=== PATIENT | male | born 2005 | race Caucasian/White ===

== ENCOUNTER 2025-02-18 12:40 | Emergency (ER) | payer OTHER, SELFPAY ==
--- NOTE | ~2025-02-18 | XR_ITS ---
HISTORY: Palm FB eval COMPARISON: None TECHNIQUE: 3 views of the left hand were performed. FINDINGS: No acute fracture is identified. The joint spaces are preserved. The carpal arcs are intact. Trace radiocarpal joint space narrowing with sclerosis of the distal radius is present. Bone mineralization is age-appropriate. No significant soft tissue swelling. No radiopaque foreign body is identified. IMPRESSION: No acute fracture or dislocation within the left hand, as detailed above. Reviewed, dictated and finalized at location A.
[2025-02-18 12:50] VITALS: BP 171/92; PULSE 84; RESP 20; TEMP 36.6; O2SAT 100
--- OUTSIDE RECORDS SUMMARY | 2025-02-18 14:35 | XMS_ITS | Continuity of Care Document ---
Author Name [facility] Organization [facility] Care Team Providers Care Territory Supervisor Name Role Phone [facility] Unavailable Unavailable Problems Combined list of problems from [facility] and [facility] facilities. It does not include entries that were removed or entered in error. Problem Status Onset Date Problem Type Date of Resolution Comments Source Acculturation difficulty Active Condition [address] [place] [address] [place] Adjustment disorder with mixed anxiety and depressed mood Active Condition Unknown Organization Other problems related to employment Active Condition [address] [place] [address] Suicidal ideations Active Condition Unknown Organization Medications Combined list of outpatient medications from [facility] and [facility] facilities.Medications provided include 1) outpatient medications from the last 15 months, and 2) patient-reported medications. 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 Not to exceed 4000 mg/day., # 24 tab(s), 0 total refill(s ), Acute, 09/02/22 11:00:00 PM WATER RESOURCE ENGINEER, Pharmacy : [facility] Complet ed 09/03/2022 3 2022 24.0 [facility] Immunizations Combined list of available immunizations from the Department of Defense and Veterans Affairs facilities. Immunization Series Date Given Administered By Site Reaction Lot Number CVX Code Drug Labeling Associate Status Comments Source influenza virus vaccine, inactivated 2021 KARI ESPOSITO Brandyn vy, left (delt oid) [id number] 158 [employer] complet ed influenza virus vaccine, inactivat ed 07/07/22 Given [facility] measles, mumps and rubella virus vaccine 2 2021 DEVANTE PUENTES [id number] Merck (MSD) complet ed measles, mumps and rubella virus vaccine DoD Hepatitis B vaccine (recombinant) , CpG adjuvanted 2 2021 DEVANTE PUENTES [id number] [employer]. (DVX) complet ed Hepatitis B vaccine (recombin ant), CpG adjuvante d DoD SARS-COV-2 (COVID-19) vaccine, mRNA, spike protein, LNP, preservative free, 100 mcg or 50 mcg dose 2 2021 DEVANTE PUENTES [id number] [employer]. (MOD) complet ed SARS-COV- 2 (COVID-19 ) vaccine, mRNA, spike protein, LNP, preservat nuria free, 100 mcg or 50 mcg dose DoD measles, mumps and rubella virus vaccine 1 2021 LEIDY HALE [id number] Merck (MSD) complet ed measles, mumps and rubella virus vaccine DoD poliovirus vaccine, inactivated 1 2021 LEIDY HALE [id number] [employer] (MOD) complet ed polioviru s vaccine, inactivat ed DoD tuberculin skin test; purified protein derivative solution, intradermal 1 2021 LEIDY HALE [id number] Sanofi Pasteur (PMC) complet ed tuberculi n skin test; purified protein derivativ e solution, intraderm al DoD meningococcal polysaccharid e (groups A, C, Y and W-135) diphtheria toxoid conjugate vaccine (MCV4P) 1 2021 LEIDY HALE [id number] Sanofi Pasteur (PMC) complet ed meningoco ccal polysacch aride (groups A, C, Y and W-135) diphtheri a toxoid conjugate vaccine (MCV4P) DoD tetanus toxoid, reduced diphtheria toxoid, and acellular pertu is vaccine, adsorbed 1 2021 LEIDY HALE [id number] [facility] (SKB) complet ed tetanus toxoid, reduced diphtheri a toxoid, and acellular pertussis vaccine, adsorbed DoD Adenovirus, type 4 and type 7, live, oral 1 2021 LEIDY HALE [id number] 143 Unknown (UNK) complet ed Adenoviru s, type 4 and type 7, live, oral DoD Influenza, injectable, quadrivalent, preservative free 1 2021 LEIDY HALE [id number] 150 Other (OTH) complet ed Influenza , injectabl e, quadrival ent, preservat nuria free DoD Hepatitis B vaccine (recombinant) , CpG adjuvanted 1 2021 LEIDY HALE [id number] 189 [facility] (SKB) complet ed Hepatitis B vaccine (recombin ant), CpG adjuvante d DoD SARS-COV-2 (COVID-19) vaccine, mRNA, spike protein, LNP, preservative free, 100 mcg or 50 mcg dose 1 2021 LEIDY HALE [id number] [employer] (MOD) complet ed SARS-COV- 2 (COVID-19 ) vaccine, mRNA, spike protein, LNP, preservat nuria free, 100 mcg or 50 mcg dose DoD Results Combined list of recent chemistry, hematology and other laboratory results from Department of Defense and Veterans Affairs, ranging from 15 months to all on record, depending upon the facility. Order Name Results Value Reference Range Date Interpretation Specimen Comments Source Infectio us Disease Strep A, Rapid Positive *ABN* (08/03/22 12:23 PM) 08/03 A Unknown Organizat ion Toxicolo gy U Cocaine Scrn NEG 04/25 Interpretiv e Data: Screen cutoff: 300 ng/mL Results are to be used only for medical (ie, treatment) purposes. Unconfirmed screening results must not be used for non-medical purposes (eg, employment testing). Unknown Organizat ion Toxicolo gy U Amph Scrn NEG 04/25 Interpretiv e Data: Screen cutoff: 1000 ng/mL Results are to be used only for medical (ie, treatment) purposes. Unconfirmed screening results must not be used for non-medical purposes (eg, employment testing). Unknown Organizat ion Toxicolo gy U PCP Scrn NEG 04/25 Interpretiv e Data: Screen cutoff: 25ng/mL Results are to be used only for medical (ie, treatment) purposes. Unconfirmed screening results must not be used for non-medical purposes (eg, employment testing). Unknown Organizat ion Toxicolo gy U Yulisa Scrn NEG 04/25 Interpretiv e Data: Screen cutoff: 50 ng/mL Results are to be used only for medical (ie, treatment) purposes. Unconfirmed screening results must not be used for non-medical purposes (eg, employment testing). Unknown Organizat ion Toxicolo gy U Opiate Scrn NEG 04/25 Interpretiv e Data: Screen Cutoff: 300 ng/mL Results are to be used only for medical (ie, treatment) purposes. Unconfirmed screening results must not be used for non-medical purposes (eg, employment testing). Unknown Organizat ion Toxicolo gy U Benzodia Scrn NEG 04/25 Interpretiv e Data: Screen Cutoff: 200 ng/mL Results are to be used only for medical (ie, treatment) purposes. Unconfirmed screening results must not be used for non-medical purposes (eg, employment testing). Unknown Organizat ion Toxicolo gy U Cannab Scrn NEG 04/25 Interpretiv e Data: Screen cutoff: 50 ng/mL Results are to be used only for medical (ie, treatment) purposes. Unconfirmed screening results must not be used for non-medical purposes (eg, employment testing). Unknown Organizat ion Molecula r Infectio us Disease SARS-CoV-2 PCR Negative 12 (04/25/22 2:10 PM) 04/25 N Interpretiv e Data: Positive results are indicative of the presence of the identified virus, but do not rule out bacterial infection or co-infectio n with other pathogens not detected by the test. Negative results do not preclude SARS-CoV-2, influenza A, influenza B,and/or RSV infection and should not be used as the sole basis for treatment or other patient management decisions. Negative results must be combined with clinical observation s, patient history, and/or epidemiolog ical information . Clinical correlation with patient history and other diagnostic information is necessary to determine patient infection status. This multi-plex test has not been FDA cleared or approved. It has been authorized by the FDA under an EUA for use by authorized laboratorie s. This test has been authorized only for the simultaneou s qualitative detection and differentia tion of nucleic acids from SARS-CoV-2, influenza A, influenza B, and respiratory syncytial virus(RSV), and not for any other viruses or pathogens. Unknown Organizat ion Molecula r Infectio us Disease Influenza B PCR Negative 8 (04/25/22 2:10 PM) 04/25 N Interpretiv e Data: Positive results are indicative of the presence of the identified virus, but do not rule out bacterial infection or co-infectio n with other pathogens not detected by the test. Negative results do not preclude SARS-CoV-2, influenza A, influenza B,and/or RSV infection and should not be used as the sole basis for treatment or other patient management decisions. Negative results must be combined with clinical observation s, patient history, and/or epidemiolog ical information . Clinical correlation with patient history and other diagnostic information is necessary to determine patient infection status. This multi-plex test has not been FDA cleared or approved. It has been authorized by the FDA under an EUA for use by authorized laboratorie s. This test has been authorized only for the [employer] qualitative detection and differentia tion of nucleic acids from SARS-CoV-2, influenza A, influenza B, and respiratory syncytial virus(RSV), and not for any other viruses or pathogens. Unknown Organizat ion Molecula r Infectio us Disease RESP SYNCYTIAL VIRUS PCR Negative 14 (04/25/22 2:10 PM) 04/25 N Interpretiv e Data: Respiratory Syncytial Virus (RSV) is the cause of a contagious disease that affects primarily infants, and the elderly who are immunocompr omised. Positive results are indicative of the presence of the identified virus, but do not rule out bacterial infection or co-infectio n with other pathogens not detected by the test. Negative results do not preclude SARS-CoV-2, influenza A, influenza B,and/or RSV infection and should not be used as the sole basis for treatment or other patient management decisions. Negative results must be combined with clinical observation s, patient history, and/or epidemiolog ical information . Clinical correlation with patient history and other diagnostic information is necessary to determine patient infection status. This multi-plex test has not been FDA cleared or approved. It has been authorized by the FDA under an EUA for use by authorized laboratorie s. This test has been authorized only for the [employer] qualitative detection and differentia tion of nucleic acids from SARS-CoV-2, influenza A, influenza B, and respiratory syncytial virus(RSV), and not for any other viruses or pathogens. Unknown Organizat ion Molecula r Infectio us Disease Influenza A PCR Negative 10 (04/25/22 2:10 PM) 04/25 N Interpretiv e Data: Influenza A (Flu A) is the most common type of influenza virus in humans and is generally responsible for seasonal flu epidemics and potentially pandemics. Positive results are indicative of the presence of the identified virus, but do not rule out bacterial infection or co-infectio n with other pathogens not detected by the test. Negative results do not preclude SARS-CoV-2, influenza A, influenza B,and/or RSV infection and should not be used as the sole basis for treatment or other patient management decisions. Negative results must be combined with clinical observation s, patient history, and/or epidemiolog ical information . Clinical correlation with patient history and other diagnostic information is necessary to determine patient infection status. This multi-plex test has not been FDA cleared or approved. It has been authorized by the FDA under an EUA for use by authorized laboratorie s. This test has been authorized only for the [employer] qualitative detection and differentia tion of nucleic acids from SARS-CoV-2, influenza A, influenza B, and respiratory syncytial virus(RSV), and not for any other viruses or pathogens. Unknown Organizat ion Molecula r Infectio us Disease Reason for Test? Screenin g (04/25/22 2:10 PM) 04/25 N Unknown Organizat ion Molecula r Infectio us Disease Reason for Test? Screenin g (04/24/22 1:36 PM) 04/24 N Unknown Organizat ion Molecula r Infectio us Disease SARS-CoV-2 PCR Negative 13 (04/24/22 1:36 PM) 04/24 N Interpretiv e Data: Positive results are indicative of the presence of the identified virus, but do not rule out bacterial infection or co-infectio n with other pathogens not detected by the test. Negative results do not preclude SARS-CoV-2, influenza A, influenza B,and/or RSV infection and should not be used as the sole basis for treatment or other patient management decisions. Negative results must be combined with clinical observation s, patient history, and/or epidemiolog ical information . Clinical correlation with patient history and other diagnostic information is necessary to determine patient infection status. This multi-plex test has not been FDA cleared or approved. It has been authorized by the FDA under an EUA for use by authorized laboratorie s. This test has been authorized only for the [employer] qualitative detection and differentia tion of nucleic acids from SARS-CoV-2, influenza A, influenza B, and respiratory syncytial virus(RSV), and not for any other viruses or pathogens. Unknown Organizat ion Molecula r Infectio us Disease Influenza A PCR Negative 11 (04/24/22 1:36 PM) 04/24 N Interpretiv e Data: Influenza A (Flu A) is the most common type of influenza virus in humans and is generally responsible for seasonal flu epidemics and potentially pandemics. Positive results are indicative of the presence of the identified virus, but do not rule out bacterial infection or co-infectio n with other pathogens not detected by the test. Negative results do not preclude SARS-CoV-2, influenza A, influenza B,and/or RSV infection and should not be used as the sole basis for treatment or other patient management decisions. Negative results must be combined with clinical observation s, patient history, and/or epidemiolog ical information . Clinical correlation with patient history and other diagnostic information is necessary to determine patient infection status. This multi-plex test has not been FDA cleared or approved. It has been authorized by the FDA under an EUA for use by authorized laboratorie s. This test has been authorized only for the [employer] qualitative detection and differentia tion of nucleic acids from SARS-CoV-2, influenza A, influenza B, and respiratory syncytial virus(RSV), and not for any other viruses or pathogens. Unknown Organizat ion Molecula r Infectio us Disease Influenza B PCR Negative 9 (04/24/22 1:36 PM) 04/24 N Interpretiv e Data: Positive results are indicative of the presence of the identified virus, but do not rule out bacterial infection or co-infectio n with other pathogens not detected by the test. Negative results do not preclude SARS-CoV-2, influenza A, influenza B,and/or RSV infection and should not be used as the sole basis for treatment or other patient management decisions. Negative results must be combined with clinical observation s, patient history, and/or epidemiolog ical information . Clinical correlation with patient history and other diagnostic information is necessary to determine patient infection status. This multi-plex test has not been FDA cleared or approved. It has been authorized by the FDA under an EUA for use by authorized laboratorie s. This test has been authorized only for the [employer] qualitative detection and differentia tion of nucleic acids from SARS-CoV-2, influenza A, influenza B, and respiratory syncytial virus(RSV), and not for any other viruses or pathogens. Unknown Organizat ion Molecula r Infectio us Disease RESP SYNCYTIAL VIRUS PCR Negative 15 (04/24/22 1:36 PM) 04/24 N Interpretiv e Data: Respiratory Syncytial Virus (RSV) is the cause of a contagious disease that affects primarily infants, and the elderly who are immunocompr omised. Positive results are indicative of the presence of the identified virus, but do not rule out bacterial infection or co-infectio n with other pathogens not detected by the test. Negative results do not preclude SARS-CoV-2, influenza A, influenza B,and/or RSV infection and should not be used as the sole basis for treatment or other patient management decisions. Negative results must be combined with clinical observation s, patient history, and/or epidemiolog ical information . Clinical correlation with patient history and other diagnostic information is necessary to determine patient infection status. This multi-plex test has not been FDA cleared or approved. It has been authorized by the FDA under an EUA for use by authorized laboratorie s. This test has been authorized only for the [employer] qualitative detection and differentia tion of nucleic acids from SARS-CoV-2, influenza A, influenza B, and respiratory syncytial virus(RSV), and not for any other viruses or pathogens. Unknown Organizat ion Vital Signs Combined list of inpatient and outpatient Vital Signs from Department of Defense and Veterans Affairs, ranging from 12 months to all on record, depending upon the facility. Vital Sign Value Date Comments Source Mean Arterial Pressure, Calc 100 mm[Hg] 04/25/2022 21:14:00 Unknown Organization Temperature Oral 36.7 Nubia 04/25/2022 21:14:00 Unknown Organization Peripheral Pulse Rate 72 bpm 04/25/2022 21:14:00 Unknown Organization Respiratory Rate 16 br/min 04/25/2022 21:14:00 Unknown Organization Systolic Blood Pressure 143 mm[Hg] 04/25/20 21:14:00 Unknown Organization Diastolic Blood Pressure 79 mm[Hg] 21:14:00 Unknown Organization Respiratory Rate 16 br/min 06/20/2022 18:48:00 [facility] [place] Peripheral Pulse Rate 94 bpm 06/20/2022 18:48:00 [facility] [place] Mean Arterial Pressure, Calc 95 mm[Hg] 06/20/2022 18:48:00 [facility] Systolic Blood Pressure 138 mm[Hg] 06/20/20 18:48:00 [facility] [place] Diastolic Blood Pressure 74 mm[Hg] 18:48:00 [facility] BP Site Left arm 06/20/2022 18:48:00 [facility] Temperature Oral 37.1 Nubia 06/20/2022 18:48:00 [facility] [place] Blood Pressure Manual Manual 06/20/2022 18:48:00 [facility] [place] Systolic Blood Pressure 133 mm[Hg] 04/25/20 17:01:00 Unknown Organization Diastolic Blood Pressure 89 mm[Hg] 17:01:00 Unknown Organization Temperature Tympanic 36.8 Nubia 04/25/2022 17:01:00 Unknown Organization Peripheral Pulse Rate 69 bpm 04/25/2022 17:01:00 Unknown Organization Respiratory Rate 18 br/min 04/25/2022 17:01:00 Unknown Organization Systolic Blood Pressure 124 mm[Hg] 04/26/20 22 10:17:00 Unknown Organization Diastolic Blood Pressure 72 mm[Hg] 10:17:00 Unknown Organization Respiratory Rate 16 br/min 04/26/2022 10:17:00 Unknown Organization Peripheral Pulse Rate 81 bpm 04/26/2022 10:17:00 Unknown Organization Temperature Oral 36.9 Nubia 04/26/2022 10:17:00 Unknown Organization Temperature Oral 36.7 Nubia 04/28/2022 22:09:00 Unknown Organization Peripheral Pulse Rate 59 bpm 04/28/2022 22:09:00 Unknown Organization Respiratory Rate 16 br/min 04/28/2022 22:09:00 Unknown Organization Systolic Blood Pressure 143 mm[Hg] 04/28/20 22:09:00 Unknown Organization Diastolic Blood Pressure 85 mm[Hg] 22:09:00 Unknown Organization Mean Arterial Pressure, Calc 104 mm[Hg] 04/28/2022 22:09:00 Unknown Organization Mean Arterial Pressure, Calc 91 mm[Hg] 08/04/2022 12:55:00 [facility] Systolic Blood Pressure 124 mm[Hg] 08/04/19 23 12:55:00 [facility] Diastolic Blood Pressure 75 mm[Hg] 023 12:55:00 [facility] Temperature Oral 37.1 Nubia 08/04/2022 12:55:00 [facility] [place] Respiratory Rate 16 br/min 08/04/2022 12:55:00 [facility] Peripheral Pulse Rate 80 bpm 08/04/2022 12:55:00 [facility] Respiratory Rate 16 br/min 04/27/2022 10:24:00 Unknown Organization Systolic Blood Pressure 135 mm[Hg] 04/27/20 10:24:00 Unknown Organization Diastolic Blood Pressure 85 mm[Hg] 10:24:00 Unknown Organization Peripheral Pulse Rate 85 bpm 04/27/2022 10:24:00 Unknown Organization Temperature Oral 36.6 Nubia 04/27/2022 10:24:00 Unknown Organization Temperature Oral 36.7 Nubia 04/28/2022 10:15:00 Unknown Organization Peripheral Pulse Rate 59 bpm 04/28/2022 10:15:00 Unknown Organization Systolic Blood Pressure 143 mm[Hg] 04/28/20 22 10:15:00 Unknown Organization Diastolic Blood Pressure 85 mm[Hg] 022 10:15:00 Unknown Organization Respiratory Rate 16 br/min 04/28/2022 10:15:00 Unknown Organization Mean Arterial Pressure, Calc 104 mm[Hg] 04/28/2022 10:15:00 Unknown Organization Temperature Temporal Artery 36.8 [facility] 04/24/2022 17:03:00 Unknown Organization Temperature Temporal Artery 36.8 [facility] 04/24/2022 22:02:00 Unknown Organization Systolic Blood Pressure 127 mm[Hg] 04/24/20 22 22:02:00 Unknown Organization Diastolic Blood Pressure 55 mm[Hg] 022 22:02:00 Unknown Organization Peripheral Pulse Rate 72 bpm 04/24/2022 22:02:00 Unknown Organization Respiratory Rate 18 br/min 04/24/2022 22:02:00 Unknown Organization Temperature Oral 37.2 Nubia 08/03/2022 13:18:00 [facility] Respiratory Rate 16 br/min 08/03/2022 13:18:00 [facility] Systolic Blood Pressure 124 mm[Hg] 08/03/19 23 13:18:00 [facility] Diastolic Blood Pressure 81 mm[Hg] 023 13:18:00 [facility] Mean Arterial Pressure, Calc 95 mm[Hg] 08/03/2022 13:18:00 [facility] [place] Peripheral Pulse Rate 95 bpm 08/03/2022 13:18:00 [facility] Encounters Combined list of: 1) Encounters from Department of Veterans Affairs facilities going backup to the last 18 months, not all VA inpatient encounters are included; 2) Encounters from the Department of Defense facilities going backup to 280 months. Location Location Details Encounter Type Encounter Number Reason For Visit Attending Provider ADM Date DC Date Status Disposition Source [facility] [place] ho[place]([facility] Optometry Clinic) OUTPATIENT [id number] TITO HAYS 01/06 Released w/o Limitations [facility] Dennys valladares([facility]) [facility] Indai hoang([facility] Hearing Conservat ion) OUTPATIENT [id number] SOCORRO HEBERT Marisabel 01/06 Released w/o Limitations [facility] Dennys valladares([facility] Monse Hearing Conserv ation) [facility] [place]([facility] [employer]) OUTPATIENT [id number] FIRST VISIT FOR IMMUNIZ ATIONS YA YOVANY K 01/11 Released w/o Limitations [facility] Dennys valladares([facility] D [employer] ) [facility] [place] n([facility] Third BAS) OUTPATIENT [id number] Notes Entered by: LD SEVERINO 13 Jan 2022 0918 ------- ------- ------- ------- -- Myriam/OLMAN CELESTIN 01/13 Released w/o Limitations [facility] Dennys valladares([facility] D Third BN BAS) [facility] [place]([facility] [employer]) OUTPATIENT [id number] SECOND VISIT FOR IMMUNIZ YOVANY HENDRICKS 02/09 Released w/o Limitations [facility] Dennys valladares([facility] D [employer] ) Procedures Combined list of: 1) Procedures from Department of Veterans Affairs facilities going back up to thelast 18 months, not all VA non-surgical procedures are included; 2) All procedures from the Department of Defense facilities. Procedure Procedure Type Code Date Perfomer Comments Sourc e No data available for this section Ambulato ry Pharmacy IMMUNIZATION ADM,INTRAMUSCULAR INJECTION OF SEVERE AC RESPIRATORY SYNDROME CORONAVIR 2 (SARSCOV-2) (CORONAVIR DIS [COVID-19]) VACC,MRNALNP,SPIKE PROT,PRESERVATIVE FREE,100 MCG/0.5ML DOSAG;SECOND DOSE 2021 [facility] COLLECTION OF VENOUS BLOOD BY VENIPUNCTURE 2021 [facility] PURE TONE AUDIOMETRY (THRESHOLD), AUTOMATED; AIR ONLY 2021 [facility] OPHTHALMOLOGICAL SERVICES: MEDICAL EXAMINATION AND EVALUATION WITH INITIATION OF DIAGNOSTIC AND TREATMENT PROGRAM; INTERMEDIATE, NEW PATIENT 2021 [facility] Ophthalmological New Patient Start Intermediate Level Care Ophthalmological New Patient Start Intermediate Level Care [id number] CARMEN HAMMOND [facility] Patient education, not otherwise cla ified, non-physician provider, group, per se SOCORRO Romo [facility] Threshold Audiogram (Pure Tone) Automated Threshold Audiogram (Pure Tone) Automated 0208T SOCORRO HEBERT [facility] Vaccines Viral Measles, Mumps and Rubella, Live Vaccines Viral Measles, Mumps and Rubella, Live 06783 MANEJA, LEIDY A MMR; Series #: 1; 0.5 mL; SC; Left Arm; Mfg: Merck; Lot: [id number]; VIS given (Nathalie: 02/26/2021). [facility] Vaccines Viral Polio, Inactivated (Salk) Vaccines Viral Polio, Inactivated (Salk) 88358 LEIDY HALE IPV; Series #: 1; 0.5 mL; IM; Right Arm; Mfg: AFreeze.; Lot: [id number]; VIS given (Nathalie: 02/26/2021; 05/07/2021 - Multiple). [facility] Skin Test Anergy Tuberculin Intradermal Skin Test Anergy Tuberculin Intradermal 04938 LORELEIDY MCLAUGHLIN IPPD; Series #: 1; 0.1 mL; ID; Left Arm; Mfg: Sanofi Pasteur; Lot: [id number]; VIS given. [facility] Meningococcal Polysacch Diphtheria Toxoid Conjugate Vaccine Meningococcal Polysacch Diphtheria Toxoid Conjugate Vaccine 61122 LEIDY HALE Meningococcal MCV4P (Menactra); Series #: 1; 0.5 mL; IM; Right Arm; Mfg: Sanofi Pasteur; Lot: [id number]; VIS given (Nathalie: 02/26/2021). [facility] Tdap Vaccine Tdap Vaccine 41623 LEIDY HALE Tdap; Series #: 1; 0.5 mL; IM; Left Arm; Mfg: [employer]; Lot: [id number]; VIS given (Nathalie: 02/26/2021). [facility] Vaccines Vaccines 81641 LEIDY HALE Fran Adenovirus Type 4 and 7; Series #: 1; 2 tablets; PO; Oral; Mfg: Unknown; Lot: [id number]; VIS given (Nathalie: 07/31/2019). [facility] Immunization Administration One Vaccine Immunization Administration One Vaccine 84520 LEIDY HALE [facility] Immunization Administration Each Additional Vaccine Immunization Administration Each Additional Vaccine 80123 LEIDY HALE [facility] Immunization Admin By Intranasal / Oral Route One Vaccine Immunization Admin By Intranasal / Oral Route One Vaccine [address] Supervised Injection Intramuscular Supervised Injection Intramuscular 04292 LEIDY HALE [facility] Venipuncture Venipuncture 76600 LEIDY HALE [facility] Vaccines Viral Measles, Mumps and Rubella, Live Vaccines Viral Measles, Mumps and Rubella, Live 71018 DEVANTE PUENTES MMR; Series #: 2; 0.5 mL; SC; Left Arm; Mfg: Merck; Lot: [id number]. DoD Immunization Administration Age 18 Or Younger, One Vaccine Immunization Administration Age 18 Or Younger, One Vaccine 53004 DHAVAL DEVANTE Watson [facility] Immunization Administration Age 18 Or Younger, Each Additional Vaccine Immunization Administration Age 18 Or Younger, Each Additional Vaccine 15216 DAHVAL, DEVANTE Watson [facility] Social History Combined list of available smoking, tobacco, and other social history from Department of Defense and Veterans Affairs facilities. Social History Type Response Date Comment [facility] e Tobacco Never-cigarette user Cigarette use:. Never-other tobacco user (not cigarettes) Other Tobacco use:. [facility] Sexual Orientation Ambula tory Pharmacy Gender identity Ambulator y Pharmacy Sex Representation Male (finding) Un known Organization This section is an empty social history section. [facility] Assessment and Plan Combined list of future care activities from Department of Defense and Veterans Affairs facilities (e.g., assessment and plan notes, appointments, orders, and referrals). Additional future care activities may be listed in the Plan of Care section. Result Assessment and Plan Date Source Assessment and Plan Extracted from:Title : Office Clinic Note Author: BETTY NARVAEZ, IDC Date: 08/04/22 1. S trep throat -Continue taking medication as previously prescribed -Bicillin 1.2 millionunits IM x 1 now in clinic -Reemphasized the importance of strep protocol -Increase oral fluid intake -FFD -F/U PRN or if symptoms worsen or do not improve Ordered: penicillin G benzathine(Bicillin L-A), 1.2 millionunits, IntraMuscular, Syringe-Injection, Once, Prophylaxis, Other, First Dose: 08/04/2022 08:00:00 EST, Stop Date: 08/04/2022 08:00:00 EST, 08/04/2022 07:57:00 EST Orders: naproxen(naproxen 500 mg oral tablet), 1 tab(s), Oral, BID, # 20 tab(s), 0 total refill(s), Acute, 09/03/2022, 1 tab(s) Oral BID, Pharmacy: [facility] [Last filled 08/03/22] acetaminophen(Tylenol 325 mg oral tablet), See Instructions, PRN pain or fever, Take 1-2 tab(s) by mouth every 4-6 hours. Not to exceed 4000 mg/day., # 24 tab(s), 0 total refill(s), Acute, 09/03/2022, Take 1-2 tab(s) by mouth every 4-6 hours. Not to exceed 4000 mg/day.,PRN:as needed for pain... Rapid Strep A Screen Extracted from:Title: Office Clinic Note Author: BETTY NARVAEZ, SUMEET Date: 08/03/22 1. V iral syndrome -Exams rather unremarkable, positive erythema to bilateral tonsils without edema or exudate, will obtain Rapid Strep test and treat symptomatically -Tylenol 325mg; Take 1-2 tabs PO Q4-6H, do not exceed more than 4gms in 24 hours -Naproxen 500mg; Take 1 tab PO BID -Lab Ordered (Rapid Strep) -Educated patient on Strep protocol -Increase oral fluid intake -FFD -F/U in 24 hours for re-evaluation and lab results or sooner if symptoms worsen Ordered: naproxen(naproxen 500 mg oral tablet), 1 tab(s), Oral, BID, # 20 tab(s), 0 total refill(s), Acute, 09/03/2022, 1 tab(s) Oral BID, Pharmacy: [facility] [Last filled 08/03/22] acetaminophen(Tylenol 325 mg oral tablet), See Instructions, PRN pain or fever, Take 1-2 tab(s) by mouth every 4-6 hours. Not to exceed 4000 mg/day., # 24 tab(s), 0 total refill(s), Acute, 09/03/2022, Take 1-2 tab(s) by mouth every 4-6 hours. Not to exceed 4000 mg/day.,PRN:as needed for pain... Rapid Strep A Screen Extracted from:Title: Office Clinic Note Author: DHAVAL GARRISON PA-C Date: 06/20/22 1. E XAM, OCCUPATIONAL, [facility] OR SEPARATION FROM [email or web address], LONG - [age],y/o male presents for FINAL PHYSICAL for [employer] ADMINISTRATIVE SEPARATION -Member has s ought and received care for all medical conditions -Member is currently up to date on all medical requirements -Member is fit for full duty; not on LIMDU or Light Duty -Member d enies anyhistory of TBI/PTSD concerns -Member HAS NOTdeployed -SF Forms 2807-1, 2808 and 2697 completed and signed by Dhaval Lala, PABLO, PAMorena, NPI# [id number], [facility], and uploaded into record. FIT FOR SEPARATION Extracted from:Title: BEH Therapist OP Initial Visit Note Author: DENNYS CHAIDEZ, PhD Date: 04/25/22 1. A djustment disorder with anxiety Patient will need to leave the [place] 2. S uicidal ideations Patient denied that he wanted to kill himself. Patient was given a crisis contract. Prognosis: Guarded Benefits, Risks, Alternatives Discussed: Yes Treatment Plan: Other: Patient will need to go home. Number of Visits Expected: 1-3 Target Symptoms: Anxiety, Behavioral symptoms, Depression Goals of Treatment: Decreased suicide risk factors, Other: Patient will need to go home. Methods of Monitoring Outcomes: Other: Patient self - report. Evaluation Type: By complexity No qualifying data available. Treatment Planning Requirements: Other: patient will need to go home. 02/18/[address] [place] [address] Julius Medina Assessment and Plan Extracted from:Title : Office Clinic Note Author: BETTY NARVAEZ, IDC Date: 08/04/22 1. S trep throat -Continue taking medication as previously prescribed -Bicillin 1.2 millionunits IM x 1 now in clinic -Reemphasized the importance of strep protocol -Increase oral fluid intake -FFD -F/U PRN or if symptoms worsen or do not improve Ordered: penicillin G benzathine(Bicillin L-A), 1.2 millionunits, IntraMuscular, Syringe-Injection, Once, Prophylaxis, Other, First Dose: 08/04/2022 08:00:00 EST, Stop Date: 08/04/2022 08:00:00 EST, 08/04/2022 07:57:00 EST Orders: naproxen(naproxen 500 mg oral tablet), 1 tab(s), Oral, BID, # 20 tab(s), 0 total refill(s), Acute, 09/03/2022, 1 tab(s) Oral BID, Pharmacy: [facility] [Last filled 08/03/22] acetaminophen(Tylenol 325 mg oral tablet), See Instructions, PRN pain or fever, Take 1-2 tab(s) by mouth every 4-6 hours. Not to exceed 4000 mg/day., # 24 tab(s), 0 total refill(s), Acute, 09/03/2022, Take 1-2 tab(s) by mouth every 4-6 hours. Not to exceed 4000 mg/day.,PRN:as needed for pain... Rapid Strep A Screen Extracted from:Title: Office Clinic Note Author: BETTY NARVAEZ IDC Date: 08/03/22 1. V iral syndrome -Exams rather unremarkable, positive erythema to bilateral tonsils without edema or exudate, will obtain Rapid Strep test and treat symptomatically -Tylenol 325mg; Take 1-2 tabs PO Q4-6H, do not exceed more than 4gms in 24 hours -Naproxen 500mg; Take 1 tab PO BID -Lab Ordered (Rapid Strep) -Educated patient on Strep protocol -Increase oral fluid intake -FFD -F/U in 24 hours for re-evaluation and lab results or sooner if symptoms worsen Ordered: naproxen(naproxen 500 mg oral tablet), 1 tab(s), Oral, BID, # 20 tab(s), 0 total refill(s), Acute, 09/03/2022, 1 tab(s) Oral BID, Pharmacy: [facility] [Last filled 08/03/22] acetaminophen(Tylenol 325 mg oral tablet), See Instructions, PRN pain or fever, Take 1-2 tab(s) by mouth every 4-6 hours. Not to exceed 4000 mg/day., # 24 tab(s), 0 total refill(s), Acute, 09/03/2022, Take 1-2 tab(s) by mouth every 4-6 hours. Not to exceed 4000 mg/day.,PRN:as needed for pain... Rapid Strep A Screen Extracted from:Title: Office Clinic Note Author: DHAVAL GARRISON PA-C Date: 06/20/22 1. E XAM, OCCUPATIONAL, [facility] OR SEPARATION FROM [employer], LONG - [age],y/o male presents for FINAL PHYSICAL for [employer] ADMINISTRATIVE SEPARATION -Member has s ought and received care for all medical conditions -Member is currently up to date on all medical requirements -Member is fit for full duty; not on LIMDU or Light Duty -Member d enies anyhistory of TBI/PTSD concerns -Member HAS NOTdeployed -SF Forms 2807-1, 2808 and 2697 completed and signed by Khari GarrisonDhaval, PABLO, PA-C, NPI# [id number], [facility], and uploaded into record. FIT FOR SEPARATION Extracted from:Title: BEH Therapist OP Initial Visit Note Author: DENNYS CHAIDEZ, PhD Date: 04/25/22 1. A djustment disorder with anxiety Patient will need to leave the [place] 2. S uicidal ideations Patient denied that he wanted to kill himself. Patient was given a crisis contract. Prognosis: Guarded Benefits, Risks, Alternatives Discussed: Yes Treatment Plan: Other: Patient will need to go home. Number of Visits Expected: 1-3 Target Symptoms: Anxiety, Behavioral symptoms, Depression Goals of Treatment: Decreased suicide risk factors, Other: Patient will need to go home. Methods of Monitoring Outcomes: Other: Patient self - report. Evaluation Type: By complexity No qualifying data available. Treatment Planning Requirements: Other: patient will need to go home. 02/18/[address] [place] [address] Functional Status Combined list of recent functional and cognitive assessments recorded at [facility] Defense and [facility] ([facility] Functional [place] Measurement (FIM) Scale: 1 = Total Assistance (Subject = 0% +), 2 = Maximal Assistance (Subject = 25% +), 3 = Moderate Assistance (Subject = 50% +), 4 = Minimal Assistance (Subject = 75% +), 5 = Supervision, 6 = Modified [place] (Device), 7 = Complete [place] (Timely, Safely). Assessment Date/Time Source Assessment Type Assessment Skill Assessment Score Assessment Details FUNCTIONAL 05/10/22 Home Dietary Supplements Captured No 04/28/22Dinner Percent 76-100% 04/28/22Lunch Percent 76-100% 04/28/22ADLs Independent Activity Status ADL Ambulating Sensory Compensatory Devices None Items At Bedside None 04/28/22Breakfast Percent 76-100% 04/27/22Hours of Sleep/Nap 8 Sleep/Rest Quality Middle of night wakening Sleep Interruptions Other: woke on own 04/26/22Diet Type reg Personal Care Provided Shower, Teeth brushed
--- OUTSIDE RECORDS SUMMARY | 2025-02-18 14:35 | XMS_ITS | Clinical Summary ---
Author Organization [facility] Address [address] [place] [address] [place] [address] Care Team Providers Care Animal Nutrition Consultant Name Role Phone Unavailable Primary Care Provider Unavailabl e Allergies No known active allergies Medications Ibuprofen (ADVIL) 200 MG CAPS capsule Take 1 capsule (200 mg) by mouth every 6 (six) hours if needed for Pain Active acetaminophen (TYLENOL) 325 MG tablet Take 2 tablets (650 mg) by mouth every 4 hours as needed for Pain Active Active Problems No known active problems Immunizations Immunization Administration Dates Next Due DTaP 10/17/2007,05/03/2005 DTaP/Hep B/IPV 04/06/2004,02/17/2004,2003 HPV, 9-Valent 03/25/2016 Hepatitis A, Ped/Adol 2 dose 01/30/2014 Hepatitis B, Ped/Adolescent 2003 IPV 10/17/2007 Influenza Quadrivalent, Intranasal 05/29/2014 Influenza Split Virus 06/10/2005 MMR 12/31/2008,02/08/2005 Meningococcal Conjugate MCV4P (Menactra) 015 NOVEL H1N1 (Nasal) 06/15/2009,05/07/2009 Tdap 02/03/2015 Varicella (Chickenpox) 12/31/2008,12/02/2004 Social History Tobacco Use Types Packs/Day Years Used Date Smoking Tobacco: Never Passive Smoke Exposure: Never Smokeless Tobacco: Never Sex and Gender Information Value Date Recorded Sex Assigned at Not on file Legal Sex Male 9:41 PM [employer]INDOWS [employer] DEVEL[employer] Gender Identity Not on file Sexual Orientation Not on file Last Filed Vital Signs Vital Sign Reading Time Taken Comments Blood Pressure 122/80 05/04/2023 2:31 PM CDT Pulse 84 05/04/2023 2:31 PM CDT Temperature 37.4 C (99.3 F) 05/04/2023 2:31 PM CDT Respiratory Rate 18 07/16/2019 3: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 Oxygen Saturation 99% 05/04/2023 2:31 PM CDT Inhaled Oxygen Concentration - - Weight 91.2 kg (201 lb) 05/04/2023 2:31 PM CDT Height 175.3 cm (5' 9) 05/04/2023 2:31 PM CDT Body Mass Index 29.68 05/04/2023 2:31 PM CDT Plan of Treatment Health Maintenance Due Date Last Done Comments HIV Screening 2003 Hepatitis C Screening ages 18 to 79 once 2003 HEPATITIS A VACCINES (2 of 2 - 2-dose series) 08/02/2014 01/30/2014 DEPRESSION SCREENING 2015 HPV VACCINES (2 - Male 2-dose series) 09/22/2016 03/25/2016 Meningococcal B Vaccine (1 of 2 - Standard) 2019 YEARLY WELLNESS EXAM 01/19/2022 01/19/2021 COVID-19 Immunization ( - season) 2024 ADULT TETANUS 02/03/2025 02/03/2015 DTaP/Tdap/Td Vaccines (7 - Td or Tdap) 02/03/2025 02/03/2015, 10/17/2007, 05/03/2005, Additional history exists Influenza Vaccine 02/21/2025 05/29/2014, , 05/07/2009, Additional history exists Zoster Vaccine (Recombinant Vaccine) (1 of 2) 10/14/2053 HEPATITIS B VACCINES Completed 04/06/2004, 02/17/2004, 2003, Additional history exists IPV VACCINES Completed 10/17/2007, 03/24, 02/17/2004, Additional history exists MMR VACCINES Completed 12/31/2008, 02/08/2005 Varicella Vaccine Completed 12/31/2008, 12/02/2004 MENINGOCOCCAL VACCINE Aged Out 02/03/2015 No kinjal marita eligible based on patient's age to complete this topic HIB VACCINES Aged Out No longer eligi ble based on patient's age to complete this topic Pneumococcal Vaccine: Peds to 50 & At-Risk Patients Aged Out No longer eligi ble based on patient's age to complete this topic ROTAVIRUS VACCINES Aged Out No longer eligible based on patient's age to complete this topic Insurance ADMINISTRATIVE CONCEPTS [employer] [facility] MEDICAID ADMINISTRATIVE CONCEPTS TENZIN MARTIN [id number] [facility] MEDICAID Member Subscriber Plan / Payer (Ef fective 2019-Present) Name:Herman Kimbrough Relation to Subscriber:Self Name:Herman Kimbrough Payer ID:[id number] Group ID:Not on file Type:CONTRACTED Address: [address] [facility] [place] [id number] ADMINISTRATIVE CONCEPTS TENZIN MARTIN [id number] [facility] MEDICAID Member Subscriber Plan / Payer (Ef fective 2019-Present) Name:Herman Kimbrough Relation to Subscriber:Self Name:Herman Kimbrough Payer ID:[id number] Group ID:Not on file Type:CONTRACTED Address: [address] [place] [id number]
--- OUTSIDE RECORDS SUMMARY | 2025-02-18 14:35 | XMS_ITS | Data Portability ---
Author Organization [place] - [place] marg[place], zFNL_IND_SMG_FHO_IP_[employer]VFrank Address [address] [place] [address] Assessment No assessment recorded. Plan of Treatment Reminders Order Date Submit Date Provider Last Modified By Organization Details Last Modified Time Details Appointments None recorded. Lab urinalysis , dipstick 2020 021 anna Choig - Romina In [facility] - In-Office Orders (For Internal Use Only), [address] [place], [address], 1 12:14:04 Referral physical therapist referral - BTT TODAY- VANNESSA ROSS 2016 017 [employer], [address], [address], [address], 7 09:30:45 Procedures None recorded. Surgeries None recorded. Imaging None recorded. Medication Orders cyclobenza donnie 10 mg tablet [address] [facility], [address] [place], [address], 1 11:25:56 naproxen 500 mg tablet [address] [facility], [address] [place], [address], 1 11:26:04 Medrol (Angelo) 4 mg tablets in a dose pack 2019 020 [email or web address] [facility], [address] [place], [address], 1 11:26:01 Depo-Medro l 80 mg/mL suspension for injection 2018 019 Not available 0 10:33:26 prednisone 20 mg tablet 2018 019 [email or web address] [facility], [address] [place] [place], [address], 0 10:33:33 Patient TargetsNo targets recorded. Patient Instructions Encounter Date Encounter Id Patient Instructions Last Modified By Organization Details Last Modified Time 03/17/2020 [id number] back strain in teens: care instructions ahavill Not available 03/17/2020 11:02:47 01/19/2021 [id number] visual acuity* ahavill Not available 01/19/2021 11:33:46 Reason for Referral BTT TODAY- OK PER VANDANA Referring Physician: Chad Kat, Pediatric Medicine, Encounter Date: 10/12/2016 Results Created Date Observation Date Name Description Value Unit Range Abnormal Flag Note LastModifiedBy Organization Detail LastModifiedTime 01/20/20 21 01/19/2021 urina lysis , dipst ick color yellow Not Available [facility] - [place] - In-Office Orders (For Internal Use Only) [address] [place], [address], 01/19/2021 11:28:39 01/20/20 21 01/19/2021 urina lysis , dipst ick clarity clear Not Available [facility] - [place] - In-Office Orders (For Internal Use Only) [address] [place], [address], 01/19/2021 11:28:39 01/20/20 21 01/19/2021 urina lysis , dipst ick glucose negati ve neg Not Available [facility] - [place] - In-Office Orders (For Internal Use Only) [place], [address], 01/19/2021 11:28:39 01/20/20 21 01/19/2021 urina lysis , dipst ick bilirubin negati ve neg Not Available [facility] - [facility] - [place] - In-Office Orders (For Internal Use Only) [place], [address], 01/19/2021 11:28:39 01/20/20 21 01/19/2021 urina lysis , dipst ick ketone negati ve neg Not Available [facility] - [facility] - [place] - In-Office Orders (For Internal Use Only) [place], [address], 01/19/2021 11:28:39 01/20/20 21 01/19/2021 urina lysis , dipst ick sp gravity 1.025 1.000- 1.035 Not Available [facility] - [place] - In-Office Orders (For Internal Use Only) [place], [address], 01/19/2021 11:28:39 01/20/20 21 01/19/2021 urina lysis , dipst ick blood negati ve neg Not Available [facility] - [place] - In-Office Orders (For Internal Use Only) [place], [address], 01/19/2021 11:28:39 01/20/20 21 01/19/2021 urina lysis , dipst ick pH 7.0 5.0-7. 5 Not Available [facility] - [place] - In-Office Orders (For Internal Use Only) [place], [address], 01/19/2021 11:28:39 01/20/20 21 01/19/2021 urina lysis , dipst ick protein negati ve neg-tr steve Not Available [facility] - [place] - In-Office Orders (For Internal Use Only) [place], [address], 01/19/2021 11:28:39 01/20/20 21 01/19/2021 urina lysis , dipst ick urobilinogen 0.2 mg/dL 0.2-1. 0 Not Available [facility] - [place] - In-Office Orders (For Internal Use Only) [place], [address], 01/19/2021 11:28:39 01/20/20 21 01/19/2021 urina lysis , dipst ick nitrite negati ve neg Not Available [facility] - [place] - In-Office Orders (For Internal Use Only) [place], [address], 01/19/2021 11:28:39 01/20/20 21 01/19/2021 urina lysis , dipst ick leukocyte negati ve neg Not Available [facility] - [place] - In-Office Orders (For Internal Use Only) [place], [address], 01/19/2021 11:28:39 01/20/20 21 01/19/2021 visua l acuit y* R Eye Uncorrected 20/20 Not Available [facility] - [place] - In-Office Orders (For Internal Use Only) [place], [address], 01/19/2021 11:27:51 01/20/20 21 01/19/2021 visua l acuit y* L Eye Uncorrected 20/20 Not Available [facility] - [place] - In-Office Orders (For Internal Use Only) [place], [address], 01/19/2021 11:27:51 07/30/19 25 07/30/2024 XR, [facility] [address] [facility]: CHEST 1 VIEW - ACC #: [id number] CPT: 53447 Mod: RIS Order: [id number] (NCX) ([id number]) HIS Order: [id number] STARTE D: Jul 30 2024 4:44PM COMPLE EDWARD: Jul 30 2024 4:44PM TECH INITIA LS: EAL FULL RESULT : EXAM: Single view chest radiog raph. HISTOR Y: Encoun ter for pre-em ployme nt examin ation; COMPAR YOEL: January 17, 2024. FINDIN GS: Slight ly dimini shed lung volume s. Patchy airspa ce opacit ies in the perihi lar right lung base, involv ing middle and lower lobes. Contra latera l left lung is clear. Normal heart size. No visibl e pleura l effusi on. IMPRES NADINE: Mild patchy perihi lar airspa ce opacit ies in the right lung base, greate r than typica l for atelec tasis althou gh lung volume s are mildly dimini shed and this would be a consid eratio n. Advise repeat ing examin ation with improv ed inspir ation with 2 view techni que. ELECTR ONICAL LY SIGNED BY: DEVYN VICTOR M.D. Jul 30 2024 5:07PM Dictat ed: Jul 30 2024 5:07PM Transc ribed: Jul 30 2024 5:07PM [id number] Disper sed: Jul 30 2024 5:07PM Attend ing Dr: JARETH KRUEGER ing Dr: Primnadeen y Care: SUDHAKAR SWENSON Martin onal Doctor (s): ELECTR ONICAL LY SIGNED BY: Mecca BENNETTJul 30 2024 5:07PM ^ [email or web address] [facility] [address] [place], [address], 07/31/2024 12:34:49 Result Notes Documentation Provider Name and Address Organization Details Recorded Time Xr, Chest, 1 View : [facility] XR EXAMINATION: CHEST 1 VIEW - ACC #: [id number] CPT: 32638 Mod: RIS Order: [id number] (NCX) [id number]) HIS Order:[id number] STARTED: Jul 30 2024 4:44PM COMPLETED: Jul 30 2024 4:44PM TECH INITIALS: EAL FULL RESULT: EXAM: Single view chest radiograph. HISTORY: Encounter for pre-employment examination; COMPARISON: January 17, 2024. FINDINGS: Slightly diminished lung volumes. Patchy airspace opacities in the perihilar right lung base, involving middle and lower lobes. Contralateral left lung is clear. Normal heart size. No visible pleural effusion. IMPRESSION: Mild patchy perihilar airspace opacities in the right lung base, greater than typical for atelectasis although lung volumes are mildly diminished and this would be a consideration. Advise repeating examination with improved inspiration with 2 view technique. ELECTRONICALLY SIGNED BY: DEVYN VYAS M.D. Jul 30 2024 5:07PM Dictated: Jul 30 2024 5:07PM Transcribed: Jul 30 2024 5:07PM [id number] Dispersed: Jul 30 2024 5:07PM Attending Dr: JARETH ALCANTARA Admitting Dr: , Primary Care: FELIX SWENSON Additional Doctor(s): ELECTRONICALLY SIGNED BY: DEVYN VYAS M.D.Jul 30 2024 5:07PM ^ [place] Samguillermina [place] [facility] 07/31/2024 12:34:49 Procedures Surgical History Date Name Laterality Status Provider Name and Address Organization Details Recorded Time Appendectomy completed Romi Brian RN [facility][note 3] 02/04/2019 13:48:27 Imaging Results None recorded. Procedure Notes None recorded. Medical Equipment None Reported. Allergies No known drug allergies Medications Name Sig Start Date Stop Date Status Note LastModified by Organization Details LastModified Time cyclobenzap rine 10 mg tablet TAKE 1 TABLET BY MOUTH THREE TIMES DAILY NEEDED FOR 3 DAYS 01/19 completed Not Available Not Available Not Available prednisone 20 mg tablet Take 1 tablet twice a day by oral route for 5 days. 03/17 completed Not Available Not Available Not Available Depo-Medrol 80 mg/mL suspension for injection Take 80 mg every day by injection route for 1 day. 03/17 completed Not Available Not Available Not Available oseltamivir 75 mg capsule 03/17 completed Not Available Not Available Not Available methylpredn isolone 4 mg tablets in a dose pack TAKE DIRECTED 01/19 completed Not Available Not Available Not Available naproxen 500 mg tablet TAKE 1 TABLET BY MOUTH TWICE DAILY NEEDED FOR 5 DAYS 01/19 completed Not Available Not Available Not Available Vitals Date Recorded Body weight Respiratory rate Systolic And Diastolic Provider Name and Address Organization Details Last Updated DateTime 09/07/2016 35595.2 g 16 /min 122/78 mm[Hg] oLrna Oseguera RN [place] [facility] 09/07/2016 09:13:33 Date Recorded Body weight Respiratory rate Body temperature Provider Name and Address Organization Details Last Updated DateTime 10/12/2016 09951.41 g 20 /min 98.6 [degF] Abbie England RN [place] [facility] 10/12/2016 09:30:13 Date Recorded Body weight Body mass index (BMI) [Percentile] Per age and sex Body mass index (BMI) Body height Heart rate Respiratory rate Body temperature Systolic And Diastolic Provider Name and Address Organization Details Last Updated DateTime 1 87992.5 1 g 97 % 29.9 kg/m2 172.09 cm 66 /min 16 /min 98.6 [degF] 128/60 mm[Hg] Romi Brian RN [place] [facility] 1 11:18:48 Date Recorded Body weight Body mass index (BMI) [Percentile] Per age and sex Body mass index (BMI) Body height Oxygen saturation Oxygen saturation in Arterial blood by Pulse oximetry Body temperature Pain severity - 0-10 verbal numeric rating [Score] - Reported Heart rate Respiratory rate Systolic And Diastolic Provider Name and Address Organization Details Last Updated DateTime 9 39304.1 4 g 97 % 29 kg/m2 172.72 cm 98 % 98 % 98.8 [degF] 4 81 /min 16 /min 128/66 mm[Hg] Romi Brian RN [place] [facility] 9 13:46:01 Date Recorded Body weight Body mass index (BMI) Body mass index (BMI) [Percentile] Per age and sex Body height Heart rate Pain severity - 0-10 verbal numeric rating [Score] - Reported Body temperature Oxygen saturation Oxygen saturation in Arterial blood by Pulse oximetry Respiratory rate Systolic And Diastolic Provider Name and Address Organization Details Last Updated DateTime 0 44370.6 7 g 31.5 kg/m2 98 % 172.72 cm 86 /min 8 98.6 [degF] 100 % 100 % 18 /min 124/75 mm[Hg] Marilyn Aidan [facility][note 3] 0 10:35:30 Social History Question Answer Notes LastModified by Organizat ion Details LastModified Time Tobacco Smoking Status Never Smoker Lorna Oseguera RN null, [facility][note 3] 09/07/2016 09:14:30 What Is Your Home Situation? Mother [email or web address] Information not available 01/19/2021 Have You Had A Fever And/or Symptoms Of A Lower Respiratory Illness (cough, Difficulty Breathing, Etc)? No [email or web address] Information not available 03/17/2020 Have You Had Any Of These Symptoms: Chills ,Headache, Fatigue, Muscle Or Body Aches , Sore Throat, New Loss Of Taste Or Smell, Nausea Or Vomiting, Or Diarrhea? No [email or web address] Information not available 01/19/2021 Have You Had A COVID-19 Vaccine In The Last 7 Days? No [email or web address] Information not available 01/19/2021 What Was The Date Of Your Most Recent Tobacco Screening? 02/04/2019 [email or web address] Information not available 01/19/2021 What Is Your Parents' Marital Status? Unmarried [email or web address] Information not available 01/19/2021 What Is The Name Of Your School? [employer] [email or web address] Information not available 01/19/2021 Do You Have Any Siblings? 1 [email or web address] Information not available 01/19/2021 What Types Of Sporting Activities Do You Participate In? WRESTLING [email or web address] Information not available 01/19/2021 Year In School 7 [email or web address] Informatio n not available 01/19/2021 Sex: Unknown Functional Status None recorded. Mental Status None recorded. Family History Relationship Description Onset Age of this Age Resolved Age Notes LastModified by Organization Details LastModified Time Father No current problems or disability niecy Not available 09/07 09:14:06 Father Epilepsy FROM AN INJURY [email or web address] Not available 03/17/2020 10:28:37 Mother No current problems or disability niecy Not available 09/07 09:14:06 Medical History Condition Response hypothyroidism N cancer N congenital heart disease N asthma N allergies N ADD or ADHD N COPD N developmental delay N speech delay N high blood pressure N vision or eye problems N acid reflux/GERD N blood clots N diabetes mellitus N heart problems N chicken pox N defects or inherited disease N hearing problems N other N bedwetting N high cholesterol N congenital anomalies N Immunizations Vaccine Type Date Status Note Provider Nam e and Address Organization Details Recorded Time varicella 5 completed Romi Brian RN [place], [place] [facility] 01/19/2021 11:22:30 Influenza, live, quadrivalent, intranasal 4 completed Romi Brian RN null, [place] [facility] 01/19/2021 11:22:30 IPV 8 completed Romi Brian RN null, [place] [facility] 01/19/2021 11:22:30 DTaP 8 completed Romi Brian RN null, [place] [facility] 01/19/2021 11:22:30 DTaP-Hep B-IPV 4 completed Romi Brian RN null, [place] [facility] 01/19/2021 11:22:30 MMR 9 completed Romi Brian RN null, [place] [facility] 01/19/2021 11:22:30 meningococcal MCV4P 5 completed Romi Brian RN [place] [facility] 01/19/2021 11:22:30 Hib, unspecified formulation 5 completed Romi Brian RN null, [place] [facility] 01/19/2021 11:22:30 Novel Pjjdrcvhp-[id number], nasal 9 completed Romi Brian RN null, [place] [facility] 01/19/2021 11:22:30 Hib, unspecified formulation 4 completed Romi Brian RN null, [place] [facility] 01/19/2021 11:22:30 varicella 9 completed Romi Brian RN null, [place] [facility] 01/19/2021 11:22:30 Hep A, ped/adol, 2 dose 4 completed Romi Brian RN [place], [place] [facility] 01/19/2021 11:22:30 Influenza, split virus, trivalent, preservative 5 completed Romi Brian RN [place], [place] [facility] 01/19/2021 11:22:30 MMR 5 completed Romi Brian RN [place], [place] [facility] 01/19/2021 11:22:30 DTaP-Hep B-IPV 4 completed Romi Brian RN [place], [place] [facility] 01/19/2021 11:22:30 Hib, unspecified formulation 4 completed Romi Brian RN [place], [place] [facility] 01/19/2021 11:22:30 Hep B, adolescent or pediatric 4 completed Romi Brian RN [place], [place] [facility] 01/19/2021 11:22:30 DTaP-Hep B-IPV 4 completed Romi Brian RN [place], [place] [facility] 01/19/2021 11:22:30 Tdap 5 completed Romi Brian RN [place], [place] [facility] 01/19/2021 11:22:30 Novel Bubofnbba-M2B9-57, nasal 9 completed Romi Brian RN null, [place] [facility] 01/19/2021 11:22:30 DTaP 5 completed Romi Brian RN [place], [place] [facility] 01/19/2021 11:22:30 HPV9 6 completed Romi Brian RN null, [place] [facility] 01/19/2021 11:22:31 Past Encounters Encounter ID Performer Location Encounter Start Date Encounter Closed Date Diagnosis/Indication Diagnosis SNOMED-CT Code Diagnosis ICD10 Code Diagnosis Note [id number] MD SOLO BurdickA_SMG_P [address] [place] [address] 09/07/2016 09:04:13 09/07/2016 09:46:56 Concussion with no loss of consciousness 01479412 S06.0X0A A school accommodat ions she was given. Mom will let us know when he is able to make it through a couple of days of school without any problems. His KD test today took him 80 seconds with 2 errors. [id number] MD SOLO BurdickA_SMG_P [address], [facility] [address] [place] [address] 10/12/2016 09:19:45 10/12/2016 11:05:38 Concussion with no loss of consciousness 78759174 S06.0X0D KD was 52.8 with 2 errors.We will arrange for a [place] treadmill test with [facility] today. If he passes this, we will allow him to begin his return to play protocol. [id number] LEONEL KHAN NP zCLSD_EVA _SMG_UC_[place] [address] [address] 02/04/2019 13:26:46 02/04/2019 14:40:09 Allergic reaction to insect bite 725980195 T78.40XA Insect bite reaction 402 596328 T63.481A [id number] Lynn Patiño Hopetoby CUT OUT MACHINE OPERATOR zCLSD_EVA _SMG_UC_[place] [address] [address] 03/17/2020 10:18:42 03/17/2020 11:08:01 Low back strain 629454287 S39.012A Upon exam, pt presented with tender muscle spasms on the right posterior lower back. Decreased ROM, Flexion worse than extension. Normal rotation at trunk with some pain when rotating to the right. Positive right straight leg test. Prescribed oral steroids, muscle relaxers, and recommende d NSAID PRN for symptom relief. I recommende d a physical therapy referral for additional evaluation . He stated that he will f/u with application trainer at school. Patient educated on immunosupp ression from steroid treatment and ways to protect himself. Instructio ns were given on when to seek urgent medical care. He verbalized understand ing and is agreeable to treatment. [id number] Lynn Sesay CUT OUT MACHINE OPERATOR zCLSD_EVA _SMG_UC_B [place] [address] [address] 01/19/2021 11:09:01 01/19/2021 11:52:38 History and physical examination, sports participation 896355098 Z02.5 Health Concerns Section Related Observation LastModified by Organization Detai ls LastModified Time None Recorded Concern Status LastModified by Organization Details LastModified Time None Recorded Advance Directives Directive None Recorded Payers Insurance Date Sequence Insurance Name Policy Number Policy Fairchild Covered Member ID Fairchild Member ID Guarantor Name 01/19/2021 1 [place] - TRADITIONAL FFS Herman Kimbrough [id number] Taryn Kimbrough 04/03/2020 1 JOSE [employer] [facility] (MEDICAID REPLACEMENT - HMO) Herman Kimbrough [id number] Taryn Kimbrough 01/19/2021 1 *SELF PAY* Ta jake Kimbrough 04/03/2020 1 JOSE [facility] (MEDICAID REPLACEMENT - HMO) Herman Kimbrough [id number] Taryn Kimbrough 04/03/2020 2 [employer] (PPO) Herman Kimbrough [id number] Taryn Kimbrough 01/19/2021 2 [employer] - [facility] (PPO) Dennis Martinez [id number] Taryn Kimbrough 02/02/2021 1 JOSE [employer] [facility] (MEDICAID REPLACEMENT - HMO) Herman Kimbrough [id number] Taryn Kimbrough
--- OUTSIDE RECORDS SUMMARY | 2025-02-18 14:35 | XMS_ITS | Data Portability ---
Author Organization [place] - [facility], [facility] IP Address [address] [place] [address] Assessment Encounter Date Assessment Date Assessment LastModified by Organization Details LastModified Time 09/29/2022 09/29/2022 Approved for Myriam kaci Not available 09/29/2022 09:26:58 Plan of Treatment Reminders Order Date Submit Date Provider Last Modified By Organization Details Last Modified Time Details Appointments None record ed. Lab None record ed. Referral None record ed. Procedures None record ed. Surgeries None record ed. Imaging XR, chest, 1 view 023 09/30/19 23 ssyler [facility], [address], [place], [address], 12:20:55 Medication Orders None record ed. Patient TargetsNo targets recorded. Patient InstructionsNo instructions recorded. Reason for Referral None Reported. Results Created Date Observation Date Name Description Value Unit Range Abnormal Flag Note LastModifiedBy Organization Detail LastModifiedTime 09/30/19 23 XR, chest , 1 view No observ ation record ed. [email or web address] [facility] [address], [place], [address], 09/29/2022 12:18:45 Result Notes None recorded. Medical Equipment None Reported. Medications Name Sig Start Date Stop Date Status Note LastModified by Organization Details LastModified Time amoxicillin 500 mg capsule active Not Available Not Available N ot Available acetaminophen 325 mg tablet active Not Available Not Availabl e Not Available ibuprofen 800 mg tablet active Not Available Not Available No t Available hydrocodone 5 mg-acetaminophe n 325 mg tablet active Not Available Not Availa ble Not Available PreviDent 5000 Plus 1.1 % cream active Not Available Not Available Not Available naproxen 500 mg tablet active Not Available Not Available Not Available chlorhexidine gluconate 0.12 % mouthwash active Not Available Not Available Not Available Vitals None Recorded Social History None recorded. Functional Status None recorded. Mental Status None recorded. Family History Nothing Reported. Medical History No medical history recorded. Past Encounters Encounter ID Performer Location Encounter Start Date Encounter Closed Date Diagnosis/Indication Diagnosis SNOMED-CT Code Diagnosis ICD10 Code Diagnosis Note [id number] Darion Rene MD [facility] [address] [facility] [address] [place] [address] 09/29/2022 08:20:42 09/29/2022 09:29:54 History and physical examination, pre-employment [id number] Z02.1 Health Concerns Section Related Observation LastModified by Organization Detai ls LastModified Time None Recorded Concern Status LastModified by Organization Details LastModified Time None Recorded Advance Directives Directive None Recorded Payers Insurance Date Sequence Insurance Name Policy Number Policy Fairchild Covered Member ID Fairchild Member ID Guarantor Name 09/29/2022 PENDING SALE TO [facility] Herman Kimbrough [id number] Herman Kimbrough
--- NOTE | 2025-02-18 15:28 | ED.WOUNDLAC ---
HPI - Wound/Laceration General Chief Complaint: Wound/Laceration Stated Complaint: left hand laceration Time Seen by Provider: 02/18/25 14:11 History of Present Illness HPI narrative: Patient is a 19-year-old male who presents ER with laceration to left hand. He was stripping wire when he stabbed himself in the palm. No numbness or tingling. Does not have foreign body sensation. Tetanus up-to-date. Work wanted him to be evaluated. Review of Systems Constitutional: Constitutional: Reports no additional constitutional complaints Musculoskeletal: Musculoskeletal: Reports no additional musculoskeletal complaints Integumentary/Breasts: Skin/Breast: Reports system reviewed and no additional complaints, except as docu PMFSH Past Medical History Medical History (Updated 02/18/25 @ 19:54 by Caio Wolf MD) Healthy adult male Surgical History Surgical History (Updated 02/18/25 @ 19:54 by Caio Wolf MD) No pertinent past surgical history Exam Narrative: GENERAL: Well-appearing, well-nourished, and in no acute distress. HEAD: Normocephalic, atraumatic. HEART: Regular rate and rhythm. Normal peripheral pulses. EXTREMITIES: Normal range of motion. No edema. SKIN: Warm, dry, 1 cm puncture wound left palm that is clean without foreign body. NEURO: Alert and oriented x3. PSYCH: Normal mood and affect. Course Course Emergency Course: Wound irrigated and bandaged. Topical antibiotic placed. No foreign body on x-ray. Discharge. Vital Signs Vital signs: Vital Signs Temperature 97.9 F 02/18/25 12:50 Pulse Rate 84 02/18/25 12:50 Respiratory Rate 20 02/18/25 12:50 Blood Pressure 171/92 H 02/18/25 12:50 Pulse Oximetry 100 02/18/25 12:50 Oxygen Delivery Room Air 02/18/25 12:50 Temperature 97.9 F 02/18/25 12:50 Pulse Rate 84 02/18/25 12:50 Respiratory Rate 20 02/18/25 12:50 Blood Pressure 171/92 H 02/18/25 12:50 Pulse Oximetry 100 02/18/25 12:50 Oxygen Delivery Room Air 02/18/25 12:50 MDM - Wound/Laceration Imaging Data Radiologist's impression: ITS Impressions Hand X-Ray 02/18/25 15:07 IMPRESSION: No acute fracture or dislocation within the left hand, as detailed above. Discharge Plan Discharge Clinical Impression: Puncture wound of hand Patient Disposition: Home Condition: Stable Instructions: Puncture Wound (ED) Additional Instructions: Keep your wound clean and apply topical antibiotic. If there is pus draining or there is red streaking up the arm return the ER for further treatment evaluation. There is no foreign body on your x-ray and no fractured bone. Patient Language: Albanian Follow-up/Referrals: Wily Acuna MD [Physician] - 1 Week PHYSICIAN,HOUSE SUPERINTENDENT [Primary Care Provider] -
== END 2025-02-18 15:52 | disposition home or self-care (01) ==
PROVIDERS: Emergency Provider Emergency Medicine
DX: S61.412A Laceration without foreign body of left hand, initial encounter (principal); W27.8XXA Contact with other nonpowered hand tool, initial encounter
CPT/HCPCS: 73130; 99283